=== PATIENT | male | born 2000 | race Caucasian/White ===

== ENCOUNTER 2022-01-24 21:18 | Emergency (ER) | payer OTHER, SELFPAY ==
--- NOTE | ~2022-01-24 | XR_ITS ---
XR finger 1st LT min 2V DATE: 01/25/2022 00:27 INDICATION: Laceration. Evaluate for foreign body. TECHNIQUE: 3 views COMPARISON: None FINDINGS: No radiopaque soft tissue foreign body or subcutaneous emphysema, fracture, dislocation, pe riosteal reaction or bone destruction. IMPRESSION: Negative Reviewed, dictated and finalized at location A. IMPRESSION: Negative
[2022-01-24 21:26] VITALS: BP 146/107; PULSE 90; RESP 16; TEMP 36.8; O2SAT 100
[2022-01-24 23:28] VITALS: BP 141/96; PULSE 92; RESP 17; O2SAT 100
--- NOTE | 2022-01-25 00:06 | ED.WOUNDLAC ---
HPI - Wound/Laceration General Chief Complaint: Wound/Laceration <DEVON Wharton Last Filed: 01/25/22 03:44> Stated Complaint: laceration <DEVON Wharton Last Filed: 01/25/22 03:44> Time Seen by Provider: 01/24/22 23:56 <DEVON Wharton Last Filed: 01/25/22 03:44> History of Present Illness HPI narrative: Patient is a 21-year-old [id number] male who presents emergency department for evaluation of a laceration to his left thumb sustained 1 hour prior to arrival. Patient was at work when he cut his finger on a metal sheet on accident. Denies numbness, tingling, paresthesias in his hand. Hemostasis achieved prior to arrival. Unknown last tetanus. <DEVON Wharton Last Filed: 01/25/22 03:44> Related Data Home Medications: Home Medications Medication Instructions Recorded Confirmed No Home Medications 01/24/22 01/24/22 <DEVON Wharton Last Filed: 01/25/22 03:44> Allergies/Adverse Reactions: Allergies Allergy/AdvReac Type Severity Reaction Status Date / Time No Known Allergies Allergy Verified 01/24/22 23:29 <DEVON Wharton Last Filed: 01/25/22 03:44> Review of Systems Review of Systems: Gen.: Denies fevers or chills Eyes: Denies eye pain or visual change ENT: Denies congestion Respiratory: Denies shortness of breath or cough CV: Denies chest pain or palpitations GI: Denies abdominal pain nausea, emesis or diarrhea denies burning, urgency, frequency or hematuria Musculoskeletal: Positive for laceration. Denies back pain or muscle pain Neuro: Denies numbness, tingling, weakness or focal weakness Skin: Denies rash Except as documented, all other systems reviewed and negative <DEVON Wharton Last Filed: 01/25/22 03:44> All systems reviewed & are unremarkable except as noted in HPI and below <GARRETT WhartonC - Last Filed: 01/25/22 03:44> Exam Narrative: Gen: Alert, oriented, no acute distress Eyes: EOMI, no icterus Pulm: Respirations even and unlabored, symmetric thorax expansion, no audible stridor or visible cyanosis CV: Regular rate per telemetry GI: No distension, no voluntary/involuntary guarding Neuro: AOx4, moves all extremities without apparent difficulty or weakness, follows commands MSK: Full active and passive range of motion in left hand. Neurovascularly intact distally. Skin: Patient has a 1 cm V-shaped laceration to his left thumb just proximal to the interphalangeal joint, spares nailbed and nail matrix. Psych: Normal mood/affect, insight/judgement good, adequate fund of knowledge, recent/remote memory intact <Lolita Yee PA-C - Last Filed: 01/25/22 03:44> Course DESIGN ENG/PA Physician Supervision I did not see this patient nor was the care plan discussed with me, imaging reviewed. I was available for evaluation and consultation, I agree with the documentation <Evan Gonzalez MD - Last Filed: 01/25/22 08:27> Vital Signs Vital signs: Vital Signs Temperature 36.8 C 01/24/22 21:26 Pulse Rate 90 01/24/22 21:26 Respiratory Rate 16 01/24/22 21:26 Blood Pressure 146/107 H 01/24/22 21:26 Pulse Oximetry 100 01/24/22 21:26 Temperature 36.8 C 01/24/22 21:26 Pulse Rate 86 01/25/22 01:20 Respiratory Rate 16 01/25/22 01:20 Blood Pressure 126/93 H 01/25/22 01:20 Pulse Oximetry 98 01/25/22 01:20 <Lolita Yee PA-C - Last Filed: 01/25/22 03:44> Vital Signs Temperature 36.8 C 01/24/22 21:26 Pulse Rate 90 01/24/22 21:26 Respiratory Rate 16 01/24/22 21:26 Blood Pressure 146/107 H 01/24/22 21:26 Pulse Oximetry 100 01/24/22 21:26 Temperature 36.8 C 01/24/22 21:26 Pulse Rate 86 01/25/22 01:20 Respiratory Rate 16 01/25/22 01:20 Blood Pressure 126/93 H 01/25/22 01:20 Pulse Oximetry 98 01/25/22 01:20 <Evan Gonzalez MD - Last Filed: 01/25/22 08:27>
[2022-01-25] MEDS: TETANUS,DIPHTHERIA,AC PERTUSSIS ADULT (0.5 ML) BOOSTRIX IM (00:27)
[2022-01-25 01:20] VITALS: BP 126/93; PULSE 86; RESP 16; O2SAT 98
== END 2022-01-25 01:22 | disposition home or self-care (01) ==
PROVIDERS: Emergency Provider Emergency Medicine
DX: S61.012A Laceration without foreign body of left thumb without damage to nail, initial encounter (principal); Z23 Encounter for immunization; W26.8XXA Contact with other sharp object(s), not elsewhere classified, initial encounter
CPT/HCPCS: 12001; 73140; 90471; 90715; 99283